=== PATIENT | female | born 1985 | race Caucasian/White ===

== ENCOUNTER 2018-11-24 14:15 | Emergency (ER) | payer BC, OTHER ==
[~2018-11-24] VITALS: Ht 160 cm; Wt 125.0 kg
[2018-11-24 16:05] LABS: BASO % 0.6 % (0.0-1.0); EOS # 0.2 10^3/uL (0.0-0.50); HEMATOCRIT 41.1 % (36.0-47.0); HEMOGLOBIN 13.1 g/dl (12.0-15.5); LYMPH # 1.9 10^3/uL (1.5-4.5); LYMPH % 25.8 % (24.0-44.0); MEAN CORPUSCULAR HEMOGLOBIN 27.5 pg (27.0-33.0); MEAN CORPUSCULAR HGB CONC 31.9 g/dl (32.0-36.5); MEAN CORPUSCULAR VOLUME 86.3 fl (80.0-96.0); MONO # 0.7 10^3/uL (0.0-0.8); MONO % 10.1 % (0.0-5.0); NEUTROPHILS # 4.4 10^3/uL (1.8-7.7); NEUTROPHILS % 60.2 % (36.0-66.0); PLATELET COUNT, AUTOMATED 245 10^3/uL (150-450); RED BLOOD COUNT 4.76 10^6/uL (4.00-5.40); WHITE BLOOD COUNT 7.2 10^3/uL (4.0-10.0)
[2018-11-24] MEDS ORDERED: NS 1,000 ML IV ONE (16:15)
[2018-11-24 16:38] LABS: ALBUMIN 3.6 GM/DL (3.2-5.2); ALT/SGPT 32 U/L (12-78); BILIRUBIN,DIRECT 0.1 MG/DL (0.0-0.2); BILIRUBIN,TOTAL 0.3 MG/DL (0.2-1.0); BLOOD UREA NITROGEN 9 MG/DL (7-18); CALCIUM LEVEL 8.3 MG/DL (8.5-10.1); CARBON DIOXIDE LEVEL 27 MEQ/L (21-32); CHLORIDE LEVEL 108 MEQ/L (98-107); CREATININE FOR GFR 0.67 MG/DL (0.55-1.30); GLOMERULAR FILTRATION RATE > 60.0 (>60); GLUCOSE, FASTING 81 MG/DL (70-100); LIPASE 75 U/L (73-393); POTASSIUM SERUM 4.2 MEQ/L (3.5-5.1); SODIUM LEVEL 141 MEQ/L (136-145)
[2018-11-24 16:43] LABS: HCG, SERUM QUALITATIVE NEGATIVE (NEGATIVE)
[2018-11-24] MEDS ORDERED: ISOVUE-370 76% 100ML VIAL (Q9967) As Ordered ONE (17:10)
--- NOTE | 2018-11-24 17:46 | REPVR ---
EXAM: CT Abdomen and Pelvis With Contrast EXAM DATE/TIME: 11/24/2018 5:29 PM CLINICAL HISTORY: 33 years old, female; Pain; Abdominal pain; Generalized; Additional info: Abd. Pain; Diarrhea; Blood in the stool TECHNIQUE: Axial computed tomography images of the abdomen and pelvis with intravenous contrast. All CT scans at this facility use at least one of these dose optimization techniques: automated exposure control; mA and/or kV adjustment per patient size (includes targeted exams where dose is matched to clinical indication); or iterative reconstruction. Coronal and sagittal reformatted images were created and reviewed. CONTRAST: Contrast Material: 100 ml of ISOVUE 370; Contrast Route: IV COMPARISON: No relevant prior studies available. FINDINGS: Lower thorax: No acute findings. ABDOMEN: Liver: There is a diffuse decrease in hepatic parenchymal density, consistent with fatty infiltration. Gallbladder and bile ducts: There has been a cholecystectomy. Pancreas: Normal. No ductal dilation. Spleen: Normal. No splenomegaly. Adrenals: Normal. No mass. Kidneys and ureters: Normal. No hydronephrosis. Stomach and bowel: Ahaustral contour of the distal left rectosigmoid colon , finding colitis including acute colitis. Impression very Appendix: No evidence of appendicitis. PELVIS: Bladder: Unremarkable as visualized. Reproductive: Unremarkable as visualized. ABDOMEN and PELVIS: Intraperitoneal space: Normal. No free air. No significant fluid collection. Bones/joints: No acute fracture. No dislocation. Soft tissues: Small umbilical hernia. Vasculature: Normal. No abdominal aortic aneurysm. Lymph nodes: Multiple prominent lymph nodes in the ileocolic region measure up to 14 millimeters. Multiple mesenteric lymph nodes , more than typically demonstrated in this age group measure up to 9 millimeters. Findings may indicate adenitis. IMPRESSION: 1. There is a diffuse decrease in hepatic parenchymal density, consistent with fatty infiltration. 2. There has been a cholecystectomy. 3. Multiple prominent lymph nodes in the ileocolic region measure up to 14 millimeters. Multiple mesenteric lymph nodes , more than typically demonstrated in this age group measure up to 9 millimeters. Findings may indicate adenitis. Neoplasm such as lymphoma not absolutely excluded although considered much less likely. Electronically signed by: Mejia Rider On 11/24/2018 17:46:19 PM
[2018-11-24] MEDS ORDERED: ONDA4TAB6 PO (17:57)
[2018-11-24] MEDS ORDERED: DICY10CA13 PO (17:57)
[2018-11-24 18:20] VITALS: BP 116/60
--- NOTE | 2018-11-25 16:36 | ED PDOC ---
Post-Departure Follow-Up crescencio orellana faxed formal report of ct abd/p for fu Joe Burnett MD Nov 25, 2018 16:36
== END 2018-11-24 18:29 | disposition home or self-care (01) ==
LOC: M ED 14:15
DX: I88.0 Nonspecific mesenteric lymphadenitis (principal); R19.7 Diarrhea, unspecified; K92.1 Melena
CPT/HCPCS: 74177; 80048; 80076; 81001; 83690; 84703; 85025; 96360; 96361; 99284; Q9967